=== PATIENT | female | born 1990 | race Two or more races ===

== ENCOUNTER 2020-05-21 05:45 | Day surgery (SDC) | payer OTHER ==
[2020-05-21] MEDS ORDERED: PERCOCET 5-3251 EACH PO (14:49)
[2020-05-21] MEDS ORDERED: NEURONTIN600 M1 PO (14:50)
[2020-05-21] MEDS ORDERED: COLACE100 MG PO (14:50)
== END 2020-05-21 16:35 | disposition home or self-care (01) ==
LOC: CIR.AMB 05:45
PROVIDERS: ATTEND Surgery
DX: K40.90 Unilateral inguinal hernia, without obstruction or gangrene, not specified as recurrent (principal); Z20.828 Contact with and (suspected) exposure to other viral communicable diseases